=== PATIENT | male | born 2005 | race Caucasian/White ===

== ENCOUNTER 2025-01-29 20:30 | Emergency (ER) | payer OTHER ==
[~2025-01-29] VITALS: Ht 167.6 cm; Wt 59.0 kg
[2025-01-29 20:49] VITALS: BP 170/106
== END 2025-01-29 23:23 | disposition home or self-care (01) ==
LOC: ER 20:30
DX: S01.01XA Laceration without foreign body of scalp, initial encounter (principal); V49.9XXA Car occupant (driver) (passenger) injured in unspecified traffic accident, initial encounter
CPT/HCPCS: 12001; 90471; 90715; 99283-25

== ENCOUNTER 2025-02-07 15:24 | Emergency (ER) | payer OTHER ==
[~2025-02-07] VITALS: Ht 167.6 cm; Wt 59.0 kg
[2025-02-07 16:12] VITALS: BP 149/106
== END 2025-02-07 16:15 | disposition home or self-care (01) ==
LOC: ER 15:24
DX: S01.01XD Laceration without foreign body of scalp, subsequent encounter (principal); V29.99XD Rider (driver) (passenger) of other motorcycle injured in unspecified traffic accident, subsequent encounter
CPT/HCPCS: 99281